=== PATIENT | male | born 1970 | race Caucasian/White ===

== ENCOUNTER 2022-01-04 21:54 | Emergency (ER) | payer MEDICARE ==
[~2022-01-04] VITALS: Ht 193 cm; Wt 102.2 kg
[2022-01-04 22:57] VITALS: BP 155/101
[2022-01-05] MEDS ORDERED: AMOX-117 PO (00:34)
[2022-01-05] MEDS ORDERED: SULF1TAB49 PO (00:34)
[2022-01-05] MEDS ORDERED: amox tr/potassium clavulanate 875/125mg TAB PO ONE (00:35)
[2022-01-05] MEDS ORDERED: sulfamethoxazole/trimethoprim DS (800/160mg) tablet PO ONE (00:35)
== END 2022-01-05 01:02 | disposition home or self-care (01) ==
LOC: ER 21:57
DX: L03.114 Cellulitis of left upper limb (principal); Z79.899 Other long term (current) drug therapy
CPT/HCPCS: 99283